=== PATIENT | female | born 1975 | race Caucasian/White ===

== ENCOUNTER 2017-06-05 16:43 | Emergency (ER) | payer MEDICAID ==
[2017-06-05 16:52] VITALS: BP 197/95
--- NOTE | 2017-06-05 17:20 | ERNOTE ---
Integumentary HPI - General Time Seen by Provider: 06/05/17 17:04 Source: patient Exam Limitations: no limitations - Immun/Allergies/Home Medications Immunizations: IMMUNIZATION HX Immunizations Up to Date Yes History of Influenza Vaccine No Hx Pneumococcal Vaccination No Allergies/Adverse Reactions: Allergies Allergy/AdvReac Type Severity Reaction Status Date / Time No Known Allergies Allergy Verified 06/05/17 16:52 Home Medications: HOME MEDICATIONS Desogestrel-Ethinyl Estradiol [Reclipsen 28 Day Tablet] 1 each PO DAILY [Last Taken Unknown] Venlafaxine HCl [Effexor] 75 mg PO DAILY 12/09/14 [Last Taken Unknown] Ibuprofen [Motrin] 800 mg PO TID PRN #30 tablet 06/05/17 [Last Taken Unknown] busPIRone HCL [Buspar] 5 mg PO BID 06/05/17 [Last Taken Unknown] valACYclovir HCL [Valtrex] 1,000 mg PO BID #14 tablet 06/05/17 [Last Taken Unknown] - History of Present Illness Narrative: Patient presents for a small area of redness and vesicular eruption which has been pruritic for the past 24 hours it is located on the posterior aspect of her right just in the suboccipital area. There are no other lesions or rashes on the body. She does have a slight headache. Review of Systems - Review of Systems Constitutional: Present: no symptoms reported EYE: Present: no symptoms reported ENT: Present: no symptoms reported Respiratory: Present: no symptoms reported Cardiology: Present: no symptoms reported Gastrointestinal/Abdominal: Present: no symptoms reported Genitourinary: Present: no symptoms reported Musculoskeletal: Present: no symptoms reported Neurological: Present: no symptoms reported - Patient's Past Medical History Patient History - Medical: Anxiety Patient History - Cardiac/Respiratory: No pertinent hx Patient History - Cancer: No Hx of Cancer Patient History - Surgical Procedures: Tubal Ligation Patient History - Other: None LMP (females 10-50): now - Social History Living Situations: spouse Abuse History: No History of abuse Psych History: Hx of Anxiety Smoking Status: Never smoker Have you smoked in the past 12 months: No Do you dip or chew tobacco: No Alcohol Use: rarely Drug Use: none - Immunizations Immunizations Up to Date: Yes Hx Pneumococcal Vaccination: No History of Influenza Vaccine: No Physical Exam - Physical Exam General Appearance: Present: wd/wn, alert, no apparent distress Respiratory: Present: no respiratory distress, normal breath sounds, no accessory muscle use, chest nontender, lungs clear Cardiovascular/Chest: Present: regular rate, rhythm, no murmur, normal peripheral pulses Gastrointestinal/Abdominal: Present: normal bowel sounds, nontender, nondistended Back Exam: Present: normal inspection Skin Exam: Present: normal color, other - skin has multiple vesicular eruptions very classic for shingles on the right suboccipital region of her neck. There are no other lesions elsewhere ED Progress - Vital Signs Patient's Vital Signs:: I have reviewed the patient's vital signs. Vital Signs: Vital Signs 06/05/17 16:47 Temperature 37.1 C Pulse Rate 92 Respiratory 15 Rate Blood Pressure 197/95 O2 Sat by Pulse 97 Oximetry - Progress/Reassessment Chief Complaint: Rash Plan - Plan Plan: Patient's lesions are classic for shingles. It is more pruritic than it is painful, she will be treated accordingly. Departure Clinical Impression: Shingles Qualifiers: Herpes zoster complications: without complications Qualified Code(s): B02.9 - Zoster without complications - Departure Disposition: Home self-care Condition: Good Instructions: Shingles, [id number] Referrals: Kavita Phillips, [employer] [Primary Care Provider] - Prescriptions: Ibuprofen [Motrin] 800 mg PO TID PRN #30 tablet PRN Reason: Pain valACYclovir HCL [Valtrex] 1,000 mg PO BID #14 tablet
== END 2017-06-05 17:20 | disposition home or self-care (01) ==
LOC: ER 16:43
DX: B02.9 Zoster without complications (principal); F41.9 Anxiety disorder, unspecified

== ENCOUNTER 2017-09-22 18:43 | Emergency (ER) | payer BC, MEDICAID ==
[2017-09-22 19:02] VITALS: BP 144/93
--- NOTE | 2017-09-22 19:38 | ERNOTE ---
[facility] Date of Service: 09/22/17 Presenting Symptoms: other - sore throat Time Seen by Provider: 09/22/17 19:20 Source: patient Exam Limitations: no limitations - Immun/Allergies/Home Medications Immunizations: IMMUNIZATION HX Immunizations Up to Date Yes History of Influenza Vaccine No Hx Pneumococcal Vaccination No Allergies/Adverse Reactions: Allergies Allergy/AdvReac Type Severity Reaction Status Date / Time No Known Allergies Allergy Verified 09/22/17 19:02 Home Medications: HOME MEDICATIONS Venlafaxine HCl [Effexor] 75 mg PO DAILY 12/09/14 [Last Taken Unknown] Ibuprofen [Motrin] 800 mg PO TID PRN #30 tablet 06/05/17 [Last Taken Unknown] busPIRone HCL [Buspar] 5 mg PO BID 06/05/17 [Last Taken Unknown] Amoxicillin 500 mg PO BID #20 capsule 09/22/17 [Last Taken Unknown] - History of Present Illness Narrative: Pt. comes inn with c/o sore throat, malaise, cough, sinus congestion, green rhinorrhea, and green sputum for over a week. Pt. denies any fevers but does states that she has had cold chills and hot sweats intermittently. Pt. denies any sick contacts. Pt. denies any alleviating factors, aggravating factors, or prehospital treatment. Review of Systems - Review of Systems Constitutional: Present: chills, diaphoresis, malaise. Absent: fever, weakness , fatigue EYE: Present: no symptoms reported ENT: Present: nose congestion, nasal drainage, sore throat. Absent: ear pain Respiratory: Present: cough. Absent: shortness of breath, wheezing Cardiology: Present: no symptoms reported. Absent: chest pain, palpitations, edema Gastrointestinal/Abdominal: Present: no symptoms reported. Absent: nausea, vomiting, diarrhea Genitourinary: Present: no symptoms reported. Absent: frequency, decreased urinary output Musculoskeletal: Present: no symptoms reported. Absent: back pain, joint pain Skin: Present: no symptoms reported. Absent: rash, change in hair/nails Neurological: Present: no symptoms reported. Absent: headache, dizziness/light- headedness, numbness, tingling All Other Systems: All systems neg except as marked - Patient's Past Medical History Patient History - Medical: Anxiety Patient History - Cardiac/Respiratory: No pertinent hx Patient History - Cancer: No Hx of Cancer Patient History - Surgical Procedures: Tubal Ligation Patient History - Other: None - Social History Living Situations: spouse Abuse History: No History of abuse Psych History: Hx of Anxiety Smoking Status: Never smoker Have you smoked in the past 12 months: No Do you dip or chew tobacco: No Alcohol Use: rarely Drug Use: none - Immunizations Immunizations Up to Date: Yes Hx Pneumococcal Vaccination: No History of Influenza Vaccine: No Physical Exam - Physical Exam General Appearance: Present: wd/wn, alert, no apparent distress Head Exam: Present: normal inspection, no evidence of injury Eye Exam: Normal inspection: bilateral Ears, Nose, Throat: Present: nasal congestion, pharyngeal erythema, tonsillar exudate - white Neck: Present: normal inspection, nontender, supple, full range of motion. Absent: lymphadenopathy (R), lymphadenopathy (L) Respiratory: Present: no respiratory distress, normal breath sounds, no accessory muscle use, chest nontender, lungs clear Cardiovascular/Chest: Present: regular rate, rhythm, no murmur, normal peripheral pulses Gastrointestinal/Abdominal: Present: normal bowel sounds Back Exam: Present: normal inspection, normal range of motion, no CVA tenderness , no vertebral tenderness Extremity Exam: Present: normal inspection, non-tender, normal range of motion, no edema Neurological Exam: Present: alert, oriented, normal mood/affect, no motor/ sensory deficits Skin Exam: Present: normal color, warm/dry. Absent: pallor, skin rash ED Progress - Results and Orders Patient's Lab Results:: I have reviewed the patient's lab results. - Vital Signs Patient's Vital Signs:: I have reviewed the patient's vital signs. Vital Signs: Vital Signs 09/22/17 09/22/17 18:56 19:06 Temperature 37.1 C 37.1 C Pulse Rate 90 90 Respiratory 16 16 Rate Blood Pressure 144/93 144/93 O2 Sat by Pulse 96 96 Oximetry - Progress/Reassessment Chief Complaint: Sore Throat Progress:: Unchanged Departure Clinical Impression: Sinusitis Qualifiers: Sinusitis location: maxillary Chronicity: acute Recurrence: non-recurrent Qualified Code(s): J01.00 - Acute maxillary sinusitis, unspecified Pharyngitis Qualifiers: Pharyngitis/tonsillitis etiology: unspecified etiology Qualified Code(s): J02.9 - Acute pharyngitis, unspecified - Departure Disposition: Home self-care Condition: Good Instructions: Pharyngitis, [id number], Sinusitis, Adult, [id number] Additional Instructions: PLease follow up with primary provider in 2-3 days. Referrals: Kavita Phillips CNP [Primary Care Provider] - Prescriptions: Amoxicillin 500 mg PO BID #20 capsule
== END 2017-09-22 20:15 | disposition home or self-care (01) ==
LOC: ER 18:43
DX: J01.00 Acute maxillary sinusitis, unspecified